=== PATIENT | female | born 1965 | race Caucasian/White ===

== ENCOUNTER → 2019-08-19 | Outpatient (CLI) | payer BC | LOC: LAB 12:57 → EDSEX 13:37 → LAB 13:37 | DX: Z01.818 Encounter for other preprocedural examination (principal); Z20.828 Contact with and (suspected) exposure to other viral communicable diseases ==

== ENCOUNTER → 2019-08-23 | Day surgery (SDC) | payer BC | LOC: EDSEX → MSO | DX: Z12.11 Encounter for screening for malignant neoplasm of colon (principal); E11.9 Type 2 diabetes mellitus without complications; I10 Essential (primary) hypertension; E78.00 Pure hypercholesterolemia, unspecified; E66.01 Morbid (severe) obesity due to excess calories; Z68.34 Body mass index [BMI] 34.0-34.9, adult; Z79.4 Long term (current) use of insulin; Z79.899 Other long term (current) drug therapy | CPT/HCPCS: 00812; J2704; J3010; J7030 ==

== ENCOUNTER → 2020-08-04 | Outpatient (CLI) | payer BC | LOC: RAD 08:41 | DX: K80.20 Calculus of gallbladder without cholecystitis without obstruction (principal); R06.02 Shortness of breath ==

== ENCOUNTER 2021-06-14 15:00 | Outpatient (RCR) | payer BC | END 2021-06-23 | disposition still patient (30) | LOC: PT | DX: M25.512 Pain in left shoulder (principal) ==

== ENCOUNTER 2021-06-28 15:30 | Outpatient (RCR) | payer BC | END 2021-07-24 | disposition home or self-care (01) | LOC: PT | DX: M25.512 Pain in left shoulder (principal) ==

== ENCOUNTER 2021-07-26 14:58 | Outpatient (RCR) | payer BC | END 2021-07-26 17:00 | disposition home or self-care (01) | LOC: PT 14:58 | DX: M25.512 Pain in left shoulder (principal) ==